=== PATIENT | male | born 1965 | race Caucasian/White ===

== ENCOUNTER 2017-05-06 15:32 | Inpatient (IN) | payer OTHER ==
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
[2017-05-07] MEDS ORDERED: metFORMIN* 500 MG TAB PO ONE (07:18)
[2017-05-07] MEDS ORDERED: clonazePAM TAB(*) 0.5 MG PO ONE (07:19)
[2017-05-07] MEDS ORDERED: OXcarbazepine TAB(*) 300 MG PO ONE (07:20)
--- NOTE | 2017-05-07 10:14 | ED ---
Rachael Velazquez Abhishek, scribed for Denise Connolly MD on 05/07/17 at 0952 . Progress - Progress Note Progress Note: The patient was signed out from Dr. Yañez, pending disposition and awaiting MHE. Patient was reevaluated in the [facility] behavioral unit. Patient states he has diabetes. Denies physical complaints of chest pain, SOB, Abd pain. Patient was vague when asked about depression, and SI. He also reports lethargy and lack of appetite. PMHx includes SI without a plan, however, currently patient denies SI. Pt had a peripheral IV in place. Pulled by Dr. Connolly without incident, bleeding controlled. Bandaid applied after pressure held. Usual medications ordered: metformin clonazepam and trileptal. Awaiting dispo from psychiatry. Debbie Connolly MD 05/07/17 0830. - Consult/PCP Time Called: 16:22 Course/Dx - Course Course Of Treatment: MHE AND DISPOSITION PENDING AT SHIFT CHANGE. - Diagnoses Provider Diagnoses: Mental health problem The documentation as recorded by the Rachael delgado Abhishek accurately reflects the service I personally performed and the decisions made by Mohsen loredo Barbara J, MD.
[2017-05-07] MEDS ORDERED: Mouth Piece, Nicotine* 1 EACH CARTRIDGE INH PRN (11:23)
[2017-05-07] MEDS ORDERED: Nicotine GUM* 2 MG ONE (11:54)
[2017-05-07] MEDS ORDERED: Mouth Piece, Nicotine* 1 EACH CARTRIDGE ONE (11:55)
[2017-05-07] MEDS ORDERED: Nicotine Inhaler* 10 MG AMP ONE (11:57)
[2017-05-07] MEDS: Nicotine Inhaler* 10 MG AMP INH PRN (11:58)
[2017-05-07] MEDS: Nicotine GUM* 2 MG PO PRN (11:59)
[2017-05-07] MEDS ORDERED: Al Hydrox/Mg Hydrox/Simet LIQ* 30 ML UDC PO PRN (13:50)
[2017-05-07 14:39] VITALS: BP 108/55
[2017-05-07] MEDS: clonazePAM TAB(*) 0.5 MG PO SCH (20:58)
[2017-05-07] MEDS: Nicotine Patch Removal NOTE PATCH OFF SCH (20:59)
[2017-05-07] MEDS ORDERED: OXcarbazepine TAB(*) 300 MG ONE (21:03)
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
[2017-05-07] MEDS: OXcarbazepine TAB(*) 300 MG PO SCH (21:55)
[2017-05-08] MEDS: OXcarbazepine TAB(*) 300 MG PO SCH ×2 (08:08→20:12)
[2017-05-08] MEDS: Vitamin THERAPEUTIC TAB PO SCH (08:09)
[2017-05-08] MEDS: clonazePAM TAB(*) 0.5 MG PO SCH ×2 (08:09→20:12)
[2017-05-08] MEDS: Atorvastatin* 10 MG TAB PO SCH (08:10)
[2017-05-08] MEDS: Acetaminophen TAB* 325 MG PO PRN (08:11)
[2017-05-08] MEDS: Nicotine PATCH 21 MG/24 HR* PATCH TRANSDERM SCH (08:11)
[2017-05-08] MEDS: metFORMIN* 500 MG TAB PO SCH (08:11)
[2017-05-08] MEDS ORDERED: OXcarbazepine TAB(*) 300 MG PO SCH (09:00)
--- NOTE | 2017-05-08 12:03 | PN ---
MHU: Group Therapy Note - Service Type Service Type: [id number] Group Psychotherapy - Cognitive Behavioral Group Therapy ( CBT):Patient was attentive and participatory in CBT programming this morning, and remained in good behavioral control. Patient expressed positive insights regarding relevant treatment interventions and goals.
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
[2017-05-08] MEDS: Nicotine Inhaler* 10 MG AMP INH PRN (14:36)
[2017-05-08] MEDS: Nicotine GUM* 2 MG PO PRN ×2 (14:37→17:55)
[2017-05-08] MEDS ORDERED: ARIPiprazole TAB* 5 MG PO ONE (17:00)
[2017-05-08 18:44] LABS: TSH (Thyroid Stimulating Horm) 1.58 mcIU/mL (0.34-5.60)
[2017-05-08 18:46] LABS: Free T4 0.84 ng/dL (0.61-1.12)
[2017-05-08] MEDS ORDERED: traZODone TAB* 100 MG PO SCH (21:00)
[2017-05-08] MEDS: Nicotine Patch Removal NOTE PATCH OFF SCH (21:39)
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
[2017-05-09] MEDS: metFORMIN* 500 MG TAB PO SCH (07:44)
[2017-05-09] MEDS: Vitamin THERAPEUTIC TAB PO SCH (07:45)
[2017-05-09] MEDS: Atorvastatin* 10 MG TAB PO SCH (07:45)
[2017-05-09] MEDS: OXcarbazepine TAB(*) 300 MG PO SCH (07:45)
[2017-05-09] MEDS: clonazePAM TAB(*) 0.5 MG PO SCH (07:45)
[2017-05-09] MEDS: Acetaminophen TAB* 325 MG PO PRN (07:46)
[2017-05-09] MEDS: Nicotine PATCH 21 MG/24 HR* PATCH TRANSDERM SCH (07:47)
[2017-05-09] MEDS ORDERED: ARIPiprazole TAB* 5 MG PO SCH (09:00)
[2017-05-09] MEDS: Nicotine GUM* 2 MG PO PRN (11:23)
--- NOTE | 2017-05-09 11:45 | PN ---
Plan - Plan Treatment Plan: Name: RHIANNON CORREA Birthdate: 1965 [id number] Medications: Current Medications Acetaminophen (Tylenol Tab*) 650 mg PO Q4H PRN PRN Reason: PAIN or TEMP > 101 F Last Admin: 05/09/17 07:46 Dose: 650 mg Al Hydrox/Mg Hydrox/Simethicone (Maalox Plus*) 30 ml PO Q4H PRN PRN Reason: INDIGESTION Aripiprazole (Abilify Tab*) 10 mg PO DAILY [facility] Last Admin: 05/09/17 07:44 Dose: 10 mg Atorvastatin Calcium (Lipitor*) 10 mg PO DAILY [facility] Last Admin: 05/09/17 07:45 Dose: 10 mg Clonazepam (Klonopin Tab(*)) 0.5 mg PO BID [facility] Last Admin: 05/09/17 07:45 Dose: 0.5 mg Device (Nicotine Mouth Piece*) 1 each INH .USE WITH NICOTROL PRN PRN Reason: CRAVING Last Admin: 05/07/17 11:59 Dose: 1 each Metformin HCl (Glucophage*) 500 mg PO DAILY [facility] Last Admin: 05/09/17 07:44 Dose: 500 mg Multivitamins (Theragran Tab*) 1 tab PO DAILY [facility] Last Admin: 05/09/17 07:45 Dose: 1 tab Nicotine (Nicotine Inhaler*) 10 mg INH Q2H PRN PRN Reason: CRAVING Last Admin: 05/08/17 14:36 Dose: 10 mg Nicotine (Nicotine Patch 21 Mg/24 Hr*) 1 patch TRANSDERM DAILY [facility] Last Admin: 05/09/17 07:47 Dose: Not Given Nicotine Polacrilex (Nicotine Gum*) 2 mg PO Q2H PRN PRN Reason: CRAVING Last Admin: 05/09/17 11:23 Dose: 2 mg Oxcarbazepine (Trileptal Tab(*)) 600 mg PO BID [facility] Last Admin: 05/09/17 07:45 Dose: 600 mg Pharmacy Profile Note (Nicotine Patch Removal Note*) 1 note PATCH OFF 2100 [facility] Last Admin: 05/08/17 21:39 Dose: Not Given Trazodone HCl (Desyrel Tab*) 100 mg PO BEDTIME [facility] Last Admin: 05/08/17 20:12 Dose: 100 mg
--- NOTE | 2017-05-09 14:58 | DCNOTE ---
Discharge Planning - Discharge Planning Medications: Current Medications Acetaminophen (Tylenol Tab*) 650 mg PO Q4H PRN PRN Reason: PAIN or TEMP > 101 F Last Admin: 05/09/17 07:46 Dose: 650 mg Al Hydrox/Mg Hydrox/Simethicone (Maalox Plus*) 30 ml PO Q4H PRN PRN Reason: INDIGESTION Aripiprazole (Abilify Tab*) 10 mg PO DAILY [facility] Last Admin: 05/09/17 07:44 Dose: 10 mg Atorvastatin Calcium (Lipitor*) 10 mg PO DAILY [facility] Last Admin: 05/09/17 07:45 Dose: 10 mg Clonazepam (Klonopin Tab(*)) 0.5 mg PO BID [facility] Last Admin: 05/09/17 07:45 Dose: 0.5 mg Device (Nicotine Mouth Piece*) 1 each INH .USE WITH NICOTROL PRN PRN Reason: CRAVING Last Admin: 05/07/17 11:59 Dose: 1 each Metformin HCl (Glucophage*) 500 mg PO DAILY [facility] Last Admin: 05/09/17 07:44 Dose: 500 mg Multivitamins (Theragran Tab*) 1 tab PO DAILY [facility] Last Admin: 05/09/17 07:45 Dose: 1 tab Nicotine (Nicotine Inhaler*) 10 mg INH Q2H PRN PRN Reason: CRAVING Last Admin: 05/08/17 14:36 Dose: 10 mg Nicotine (Nicotine Patch 21 Mg/24 Hr*) 1 patch TRANSDERM DAILY [facility] Last Admin: 05/09/17 07:47 Dose: Not Given Nicotine Polacrilex (Nicotine Gum*) 2 mg PO Q2H PRN PRN Reason: CRAVING Last Admin: 05/09/17 11:23 Dose: 2 mg Oxcarbazepine (Trileptal Tab(*)) 600 mg PO BID [facility] Last Admin: 05/09/17 07:45 Dose: 600 mg Pharmacy Profile Note (Nicotine Patch Removal Note*) 1 note PATCH OFF 2099 [facility] Last Admin: 05/08/17 21:39 Dose: Not Given Trazodone HCl (Desyrel Tab*) 100 mg PO BEDTIME [facility] Last Admin: 05/08/17 20:12 Dose: 100 mg Discharge Planning: Prescriptions provided for discharge [] Yes [] No Follow up care details as per social work arrangements. Patient response to discharge plan: [] eager for discharge [] agreeable with discharge plan [] ambivalent about discharge [] disagrees with discharge today
== END 2017-05-09 14:30 | disposition home or self-care (01) | DRG 775 ==
LOC: ED 15:32 → BSU 05-07 11:45
PROVIDERS: ADMIT Psychiatry & Neurology Psychiatry; ATTEND Psychiatry & Neurology Psychiatry
PROC: GZHZZZZ Group Psychotherapy (ICD-10-PCS; principal; 2017-05-08)
DX: F10.929 Alcohol use, unspecified with intoxication, unspecified (principal); R45.851 Suicidal ideations; F31.9 Bipolar disorder, unspecified; E11.9 Type 2 diabetes mellitus without complications; F51.04 Psychophysiologic insomnia; E66.9 Obesity, unspecified; E78.00 Pure hypercholesterolemia, unspecified; Z68.35 Body mass index [BMI] 35.0-35.9, adult; Z81.8 Family history of other mental and behavioral disorders; Z81.1 Family history of alcohol abuse and dependence
CPT/HCPCS: 36415; 84439; 84443; 90853; 96102; 99222; 99232; 99238; A9270-GY